=== PATIENT | male | born 1965 | race Caucasian/White ===

== ENCOUNTER 2021-01-12 08:04 | Emergency (ER) | payer BC, OTHER ==
[~2021-01-12] VITALS: Ht 180.3 cm; Wt 114.5 kg
[2021-01-12] MEDS ORDERED: normal saline 1000ml 1,000 ML IV ONE (08:50)
[2021-01-12 10:29] VITALS: BP 146/92
[2021-01-12 10:46] LABS: BASOPHILS % (AUTO) 0.2 % (0-1); EOSINOPHILS % (AUTO) 0 % (0-6); HEMATOCRIT 45.8 % (42.0-52.0); HEMOGLOBIN 15.8 g/dl (14.0-17.9); LYMPHOCYTES # (AUTO) 1.2 X10'3 (1.1-4.8); LYMPHOCYTES % (AUTO) 16.6 % (21-51); MEAN CORPUSCULAR HEMOGLOBIN 31.5 PG (27.0-31.0); MEAN CORPUSCULAR HGB CONC 34.5 g/dL (33.0-36.5); MEAN CORPUSCULAR VOLUME 91.2 FL (78-98); MEAN PLATELET VOLUME 7.7 FL (7.4-10.4); MONOCYTES # (AUTO) 0.9 X10'3 (0-0.9); MONOCYTES % (AUTO) 12.5 % (2-12); NEUTROPHILS # (AUTO) 4.9 X10'3 (1.8-7.7); NEUTROPHILS % (AUTO) 70.7 % (42-75); PLATELET COUNT 189 X10'3 (140-440); RED BLOOD COUNT 5.02 X10'6 (4.70-6.10); RED CELL DISTRIBUTION WIDTH 14.2 % (11.5-14.5)
[2021-01-12 11:17] LABS: ALANINE AMINOTRANSFERASE 90 U/L (12-78); ALBUMIN 3.3 G/DL (3.4-5.0); ALBUMIN/GLOBULIN RATIO 0.7 (1.1-1.5); ALKALINE PHOSPHATASE 67 IU/L (46-116); ANION GAP 10 (8-16); ASPARTATE AMINO TRANSFERASE 67 U/L (10-37); BILIRUBIN,TOTAL 0.5 MG/DL (0.1-1.0); BLOOD UREA NITROGEN 17 MG/DL (7-18); BUN/CREATININE RATIO 15.9 (5.4-32.0); CALCIUM 8.4 MG/DL (8.5-10.1); CHLORIDE 102 MMOL/L (99-107); CREATININE 1.07 MG/DL (0.60-1.10); GLUCOSE 132 MG/DL (70-104); POTASSIUM 4.6 MMOL/L (3.5-5.1); SODIUM 137 MMOL/L (135-145); TOTAL CARBON DIOXIDE 24.6 MMOL/L (24-32); TOTAL PROTEIN 7.9 G/DL (6.4-8.2); eGFR 72 ML/MIN
[2021-01-12 11:34] LABS: C-REACTIVE PROTEIN 2.08 MG/DL (0.0-0.5); FERRITIN 557 NG/ML (26-388); LACTATE DEHYDROGENASE 237 U/L (85-227)
[2021-01-20] MEDS ORDERED: LISI1TAB49 PO (11:28)
[2021-01-28] MEDS ORDERED: LISI5TAB22 PO (13:46)
== END 2021-01-12 11:57 | disposition home or self-care (01) ==
LOC: ER 08:05
DX: U07.1 COVID-19 (principal)
CPT/HCPCS: 36415; 71045; 80053; 82728; 83615; 83880; 84145; 84484; 85025; 85384; 86140; 87502; 87503; 87635; 93005; 96360; 99285; C9803; J7030

== ENCOUNTER 2021-01-20 10:35 | Inpatient (IN) | payer BC, OTHER ==
[~2021-01-20] VITALS: Ht 180.3 cm; Wt 114.5 kg
[2021-01-20] MEDS ORDERED: normal saline 1000ML IV soln IV ONE (10:50)
[2021-01-20] MEDS ORDERED: ketorolac trometh. 30mg/ml inj. IV ONE (11:00)
[2021-01-20] MEDS ORDERED: dexamethasone sod phosphate 10mg/ml inj IV STA (11:00)
[2021-01-20 11:21] LABS: BASOPHILS % (AUTO) 0.4 % (0-1); EOSINOPHILS % (AUTO) 0.2 % (0-6); HEMATOCRIT 42.6 % (42.0-52.0); HEMOGLOBIN 14.3 g/dl (14.0-17.9); LYMPHOCYTES # (AUTO) 0.9 X10'3 (1.1-4.8); LYMPHOCYTES % (AUTO) 7.9 % (21-51); MEAN CORPUSCULAR HEMOGLOBIN 30.9 PG (27.0-31.0); MEAN CORPUSCULAR HGB CONC 33.4 g/dL (33.0-36.5); MEAN CORPUSCULAR VOLUME 92.4 FL (78-98); MEAN PLATELET VOLUME 7.1 FL (7.4-10.4); MONOCYTES # (AUTO) 0.7 X10'3 (0-0.9); MONOCYTES % (AUTO) 6.3 % (2-12); NEUTROPHILS # (AUTO) 9.5 X10'3 (1.8-7.7); NEUTROPHILS % (AUTO) 85.2 % (42-75); PLATELET COUNT 516 X10'3 (140-440); RED BLOOD COUNT 4.62 X10'6 (4.70-6.10); RED CELL DISTRIBUTION WIDTH 14.1 % (11.5-14.5); WHITE BLOOD COUNT 11.2 X10'3 (4.5-11.0)
[2021-01-20] MEDS ORDERED: LISI1TAB32 PO (11:28)
--- NOTE | 2021-01-20 11:28 | NUR ---
pt reports he does not always take his rx lisinopril and does not take his atorvastatin
[2021-01-20 11:33] LABS: D-DIMER 1.21 MG/L FEU (0-0.50)
[2021-01-20 11:46] LABS: ALANINE AMINOTRANSFERASE 65 U/L (12-78); ALBUMIN 2.1 G/DL (3.4-5.0); ALBUMIN/GLOBULIN RATIO 0.4 (1.1-1.5); ALKALINE PHOSPHATASE 67 IU/L (46-116); ANION GAP 8 (8-16); ASPARTATE AMINO TRANSFERASE 50 U/L (10-37); BLOOD UREA NITROGEN 13 MG/DL (7-18); BUN/CREATININE RATIO 11.7 (5.4-32.0); CALCIUM 8.4 MG/DL (8.5-10.1); CHLORIDE 103 MMOL/L (99-107); CREATININE 1.11 MG/DL (0.60-1.10); GLUCOSE 130 MG/DL (70-104); POTASSIUM 4.3 MMOL/L (3.5-5.1); SODIUM 137 MMOL/L (135-145); TOTAL CARBON DIOXIDE 25.7 MMOL/L (24-32); TOTAL PROTEIN 7.5 G/DL (6.4-8.2); eGFR 69 ML/MIN
[2021-01-20] MEDS ORDERED: CefTRIAXone 2gm/D5W 50ml BAG 50 ML IV ONE (11:50)
[2021-01-20 11:53] LABS: C-REACTIVE PROTEIN 17.75 MG/DL (0.0-0.5); MAGNESIUM 2.5 MG/DL (1.5-2.4)
[2021-01-20] MEDS ORDERED: REMDESIVIR INJ 200 MG in normal saline 100ml IV soln 60 ML IV ONE (12:20)
[2021-01-20 12:31] LABS: TOTAL CELLS COUNTED 100
[2021-01-20] MEDS ORDERED: iohexol 350MG/ML 100ml bottle IV ONE (12:31)
[2021-01-20 12:32] LABS: BANDS% (MANUAL) 7 % (0-10); LYMPHOCYTES % (MANUAL) 5 % (21-51); METAMYLEOCYTES% (MANUAL) 1 % (0-0); MONOCYTES % (MANUAL) 4 % (2-12); MYELOCYTES % (MANUAL) 2 % (0-0)
[2021-01-20 12:33] LABS: PLATELET ESTIMATE INCREASED
[2021-01-20 12:34] LABS: ANISOCYTOSIS 1+; POLYCHROMASIA 1+; SCHISTOCYTES FEW
[2021-01-20] MEDS ORDERED: enoxaparin 100mg/ml syringe SUBCUT ONE (12:40)
[2021-01-20] MEDS ORDERED: enoxaparin 80mg/0.8ml syringe SUBCUT ONE (12:45)
[2021-01-20] MEDS ORDERED: enoxaparin 30mg/0.3ml syringe SUBCUT ONE (12:45)
[2021-01-20] MEDS ORDERED: NO HOME MEDS (13:04)
[2021-01-20] MEDS ORDERED: potassium Cl 40MEQ/1/2NS 520ml 520 ML IV PRN ×2 (13:30)
[2021-01-20] MEDS ORDERED: ondansetron/PF 4mg/2ml inj IV PRN (13:30)
[2021-01-20] MEDS ORDERED: magnesium hydroxide 30ml (MOM) UD suspension PO PRN (13:30)
[2021-01-20] MEDS ORDERED: acetaminophen 325mg tablet PO PRN ×2 (13:30)
[2021-01-20] MEDS ORDERED: potassium Cl 20 mEq SR tablet PO PRN ×2 (13:30)
[2021-01-20] MEDS ORDERED: morphine 2 MG/ML inj. syringe IV PRN ×2 (13:30)
[2021-01-20] MEDS ORDERED: magnesium Cl slow-release 64mg tablet PO PRN (13:30)
[2021-01-20] MEDS ORDERED: HYDROcodone/acetaminophen 10/325mg tab PO PRN (13:30)
[2021-01-20] MEDS ORDERED: acetaminophen 650mg rectal suppository RC PRN (13:30)
[2021-01-20] MEDS ORDERED: magnesium 2GM in 50ml NS 50 ML IV PRN (13:30)
[2021-01-20] MEDS: normal saline 1000ml 1,000 ML IV SCH (13:30)
[2021-01-20] MEDS ORDERED: magnesium 4gm in 100ml NS 100 ML IV PRN (13:30)
[2021-01-20] MEDS ORDERED: diphenhydrAMINE 25mg capsule PO PRN (13:30)
[2021-01-20] MEDS ORDERED: mag hydrox/Alum hydrox/simeth 30ml oral suspension PO PRN (13:30)
[2021-01-20] MEDS ORDERED: bisacodyl 10mg suppository rectal RC PRN (13:30)
[2021-01-20] MEDS ORDERED: HYDROcodone/acetaminophen 5mg/325mg tablet PO PRN (13:30)
[2021-01-20 14:01] LABS: HEMOGLOBIN A1C 6.7 % (4.5-6.2)
--- NOTE | 2021-01-20 18:33 | NUR ---
Rec'd report from ADRIANO Jimenez
[2021-01-20] MEDS: K and/or MAG REPLACEMENT MC SCH (20:00)
[2021-01-20] MEDS: dexamethasone 4mg/ml inj IM SCH (20:09)
[2021-01-20] MEDS: docusate sod 100mg capsule PO SCH (20:09)
[2021-01-20] MEDS: heparin, porcine 5000 units/ml vial SQ SCH (20:10)
--- NOTE | 2021-01-20 21:36 | NUR ---
Patient resting comfortably on gurluray, I turned high flow up to 15L and pt now sating 88-90%
[2021-01-20 23:00] VITALS: BP 129/84
[2021-01-21 02:00] VITALS: BP 125/86
--- NOTE | 2021-01-21 06:15 | NUR ---
Patient in room [facility]TH[facility] 4008. I have received report from Woody OH and had the opportunity to ask questions and assume patient care.
[2021-01-21 06:16] VITALS: BP 119/79
[2021-01-21] MEDS: REMDESIVIR 100 MG in NS 100ml IVPB IV SCH (06:53)
[2021-01-21] MEDS: heparin, porcine 5000 units/ml vial SQ SCH (06:54)
--- NOTE | 2021-01-21 07:25 | NUR ---
MESSAGE: [phone]. Decadron is ordered IM, was it supposed to be this way or can i get it changed to IV? j luis [phone]
[2021-01-21] MEDS: dexamethasone 4mg/ml inj IM SCH (07:45)
--- NOTE | 2021-01-21 07:56 | NUR ---
Patient agreeable to lying prone
[2021-01-21] MEDS: docusate sod 100mg capsule PO SCH ×2 (08:00→20:00)
[2021-01-21] MEDS: K and/or MAG REPLACEMENT MC SCH ×2 (08:00→20:00)
[2021-01-21 08:05] LABS: BASOPHILS # (AUTO) 0.1 X10'3 (0-0.2); BASOPHILS % (AUTO) 0.5 % (0-1); EOSINOPHILS % (AUTO) 0 % (0-6); HEMATOCRIT 40.2 % (42.0-52.0); HEMOGLOBIN 13.7 g/dl (14.0-17.9); LYMPHOCYTES % (AUTO) 8.5 % (21-51); MEAN CORPUSCULAR HEMOGLOBIN 31.3 PG (27.0-31.0); MEAN CORPUSCULAR VOLUME 92.3 FL (78-98); MEAN PLATELET VOLUME 7.4 FL (7.4-10.4); MONOCYTES # (AUTO) 0.6 X10'3 (0-0.9); MONOCYTES % (AUTO) 5.2 % (2-12); NEUTROPHILS # (AUTO) 9.9 X10'3 (1.8-7.7); NEUTROPHILS % (AUTO) 85.8 % (42-75); PLATELET COUNT 517 X10'3 (140-440); RED BLOOD COUNT 4.36 X10'6 (4.70-6.10); RED CELL DISTRIBUTION WIDTH 14.1 % (11.5-14.5); WHITE BLOOD COUNT 11.6 X10'3 (4.5-11.0)
[2021-01-21 08:15] LABS: ALANINE AMINOTRANSFERASE 64 U/L (12-78); ALBUMIN 1.8 G/DL (3.4-5.0); ALBUMIN/GLOBULIN RATIO 0.3 (1.1-1.5); ALKALINE PHOSPHATASE 69 IU/L (46-116); ANION GAP 10 (8-16); ASPARTATE AMINO TRANSFERASE 47 U/L (10-37); BILIRUBIN,TOTAL 0.4 MG/DL (0.1-1.0); BLOOD UREA NITROGEN 17 MG/DL (7-18); C-REACTIVE PROTEIN 16.85 MG/DL (0.0-0.5); CALCIUM 8.5 MG/DL (8.5-10.1); CHLORIDE 109 MMOL/L (99-107); CHOL/HDL RATIO 7.6 (0.00-4.99); CHOLESTEROL 151 MG/DL (0-200); CREATININE 0.85 MG/DL (0.60-1.10); GLUCOSE 158 MG/DL (70-104); HDL CHOLESTEROL 20 MG/DL (35-60); LACTATE DEHYDROGENASE 476 U/L (85-227); LDL CHOLESTEROL 98 MG/DL (50-100); MAGNESIUM 2.7 MG/DL (1.5-2.4); PHOSPHORUS 3.1 MG/DL (2.3-4.5); POTASSIUM 4.6 MMOL/L (3.5-5.1); SODIUM 143 MMOL/L (135-145); TOTAL CARBON DIOXIDE 24.1 MMOL/L (24-32); TOTAL PROTEIN 7.1 G/DL (6.4-8.2); TRIGLYCERIDES 127 MG/DL (20-135); eGFR > 90 ML/MIN
[2021-01-21 09:38] LABS: D-DIMER 1.19 MG/L FEU (0-0.50)
[2021-01-21] MEDS ORDERED: dextrose 50%-water 50ml dispensing syringe IV PRN ×2 (09:40)
[2021-01-21] MEDS ORDERED: MESSAGE TO PHARMACY PO ONE (09:40)
[2021-01-21] MEDS ORDERED: glucagon, human recombinant 1mg kit SUBCUT PRN (09:40)
[2021-01-21] MEDS ORDERED: dextrose ORAL solution 15 GM/59 ML bottle PO PRN ×2 (09:40)
[2021-01-21 10:40] VITALS: BP 124/69
--- NOTE | 2021-01-21 13:56 | NUR ---
DM Consult "A1C 6.7": Pt admit DX COVID-19 PNA, acute respiratory failure, HTN, and new onset DM likely to require PO Glu coverage on discharge per MD note. Pt PO 50% first carb controlled meal on 15L high flow salter w/ NRB per EMR. Pending BM though just admit receiving routine colace. Pt would benefit from written/verbal DM ed once more appropriate following MD discussion w/ pt regarding new DM DX this admit. Will continue to monitor for PO trends and nutrition intervention needs this admit. Rec: 1. continue carb controlled diet; encourage PO 2. monitor for ONS needs pending further PO hx 3. routine bowel care 4. scaled wt this admit; subsequent weekly wts 5. DM ed once more appropriate and pt made aware of new DM DX by MD prior to discharge Addendum: 01/21/21 at [address] Amended: Links added.
[2021-01-21 14:17] VITALS: BP 120/72
[2021-01-21] MEDS: insulin Lispro (HumaLOG) vial - multi-dose SQ SCH ×2 (14:24→18:53)
--- NOTE | 2021-01-21 15:54 | NUR ---
Patient sitting up in chair
[2021-01-21 18:00] VITALS: BP 133/70
--- NOTE | 2021-01-21 18:19 | NUR ---
Problems reprioritized. Patient report given, questions answered & plan of care reviewed with Woody OH.
[2021-01-21] MEDS: dexamethasone 6 MG in NS 50ml IV soln IV SCH (20:00)
[2021-01-21] MEDS ORDERED: dexamethasone 4mg/ml inj IV SCH ×2 (20:00)
[2021-01-21] MEDS: enoxaparin 40mg/0.4ml syringe SUBCUT SCH (20:00)
[2021-01-21] MEDS: insulin glargine (Lantus) pen - multi-dose SQ SCH (21:16)
[2021-01-21 22:00] VITALS: BP 127/74
[2021-01-22 02:00] VITALS: BP 136/87
--- NOTE | 2021-01-22 06:18 | NUR ---
Patient in room [facility]TH[facility] 4008. I have received report from Woody OH and had the opportunity to ask questions and assume patient care.
[2021-01-22 06:19] VITALS: BP 120/76
[2021-01-22] MEDS: docusate sod 100mg capsule PO SCH ×2 (07:08→20:01)
[2021-01-22] MEDS: dexamethasone 6 MG in NS 50ml IV soln IV SCH ×2 (07:08→20:01)
[2021-01-22] MEDS: enoxaparin 40mg/0.4ml syringe SUBCUT SCH ×2 (07:08→20:01)
[2021-01-22] MEDS: K and/or MAG REPLACEMENT MC SCH ×2 (08:00→20:00)
[2021-01-22] MEDS: REMDESIVIR 100 MG in NS 100ml IVPB IV SCH (08:01)
[2021-01-22 08:23] LABS: BASOPHILS # (AUTO) 0.1 X10'3 (0-0.2); EOSINOPHILS % (AUTO) 0 % (0-6); HEMATOCRIT 41.9 % (42.0-52.0); HEMOGLOBIN 13.9 g/dl (14.0-17.9); LYMPHOCYTES # (AUTO) 1.2 X10'3 (1.1-4.8); MEAN CORPUSCULAR HGB CONC 33.3 g/dL (33.0-36.5); MONOCYTES # (AUTO) 0.6 X10'3 (0-0.9)
[2021-01-22 08:24] LABS: BASOPHILS % (AUTO) 0.4 % (0-1); LYMPHOCYTES % (AUTO) 6.8 % (21-51); MEAN CORPUSCULAR VOLUME 93.2 FL (78-98); MEAN PLATELET VOLUME 7.6 FL (7.4-10.4); MONOCYTES % (AUTO) 3.7 % (2-12); NEUTROPHILS # (AUTO) 15.6 X10'3 (1.8-7.7); NEUTROPHILS % (AUTO) 89.1 % (42-75); PLATELET COUNT 674 X10'3 (140-440); RED BLOOD COUNT 4.49 X10'6 (4.70-6.10); RED CELL DISTRIBUTION WIDTH 14.3 % (11.5-14.5); WHITE BLOOD COUNT 17.5 X10'3 (4.5-11.0)
[2021-01-22] MEDS: insulin Lispro (HumaLOG) vial - multi-dose SQ SCH ×3 (08:41→18:53)
[2021-01-22 08:46] LABS: ALANINE AMINOTRANSFERASE 94 U/L (12-78); ALBUMIN 1.9 G/DL (3.4-5.0); ALBUMIN/GLOBULIN RATIO 0.4 (1.1-1.5); ALKALINE PHOSPHATASE 61 IU/L (46-116); ANION GAP 10 (8-16); ASPARTATE AMINO TRANSFERASE 53 U/L (10-37); BILIRUBIN,TOTAL 0.5 MG/DL (0.1-1.0); BLOOD UREA NITROGEN 23 MG/DL (7-18); BUN/CREATININE RATIO 24.5 (5.4-32.0); C-REACTIVE PROTEIN 7.22 MG/DL (0.0-0.5); CALCIUM 8.6 MG/DL (8.5-10.1); CHLORIDE 109 MMOL/L (99-107); CREATININE 0.94 MG/DL (0.60-1.10); D-DIMER 0.91 MG/L FEU (0-0.50); GLUCOSE 129 MG/DL (70-104); LACTATE DEHYDROGENASE 399 U/L (85-227); MAGNESIUM 2.5 MG/DL (1.5-2.4); POTASSIUM 4.4 MMOL/L (3.5-5.1); SODIUM 143 MMOL/L (135-145); eGFR 84 ML/MIN
[2021-01-22 10:30] VITALS: BP 141/75
[2021-01-22] MEDS: normal saline 1000ml 1,000 ML IV SCH (13:31)
[2021-01-22 14:48] VITALS: BP 123/77
--- NOTE | 2021-01-22 15:56 | NUR ---
Attempted to titrate patients nonrebreather down to 10 liters with 15 liters on the high flow salter as his sp02 was 97%, re-checked patients sp02 and it was 86%. Placed back on 15 liters on the nonrebreather
[2021-01-22 18:00] VITALS: BP 128/79
--- NOTE | 2021-01-22 18:24 | NUR ---
Problems reprioritized. Patient report given, questions answered & plan of care reviewed with Yvenet.
[2021-01-22] MEDS: insulin glargine (Lantus) pen - multi-dose SQ SCH (20:47)
[2021-01-22 22:00] VITALS: BP 138/79
[2021-01-23 02:03] VITALS: BP 125/77
[2021-01-23 06:00] VITALS: BP 117/68
--- NOTE | 2021-01-23 06:37 | NUR ---
Patient in room [facility]TH[facility] 4008. I have received report from ADRIANO Whitman and had the opportunity to ask questions and assume patient care.
[2021-01-23] MEDS: REMDESIVIR 100 MG in NS 100ml IVPB IV SCH (07:42)
[2021-01-23] MEDS: dexamethasone 6 MG in NS 50ml IV soln IV SCH ×2 (07:42→20:40)
[2021-01-23 07:43] LABS: BASOPHILS # (AUTO) 0.2 X10'3 (0-0.2); BASOPHILS % (AUTO) 1.1 % (0-1); EOSINOPHILS % (AUTO) 0 % (0-6); HEMATOCRIT 41.3 % (42.0-52.0); HEMOGLOBIN 13.9 g/dl (14.0-17.9); LYMPHOCYTES # (AUTO) 1.1 X10'3 (1.1-4.8); LYMPHOCYTES % (AUTO) 7.8 % (21-51); MEAN CORPUSCULAR HEMOGLOBIN 31.2 PG (27.0-31.0); MEAN CORPUSCULAR HGB CONC 33.7 g/dL (33.0-36.5); MEAN CORPUSCULAR VOLUME 92.6 FL (78-98); MEAN PLATELET VOLUME 7.3 FL (7.4-10.4); MONOCYTES # (AUTO) 0.8 X10'3 (0-0.9); MONOCYTES % (AUTO) 5.6 % (2-12); NEUTROPHILS # (AUTO) 11.7 X10'3 (1.8-7.7); NEUTROPHILS % (AUTO) 85.5 % (42-75); PLATELET COUNT 561 X10'3 (140-440); RED BLOOD COUNT 4.46 X10'6 (4.70-6.10); RED CELL DISTRIBUTION WIDTH 14.5 % (11.5-14.5); WHITE BLOOD COUNT 13.7 X10'3 (4.5-11.0)
[2021-01-23] MEDS: enoxaparin 40mg/0.4ml syringe SUBCUT SCH ×2 (07:43→20:40)
[2021-01-23] MEDS: docusate sod 100mg capsule PO SCH ×3 (07:44→20:40)
[2021-01-23 07:59] LABS: D-DIMER 1.04 MG/L FEU (0-0.50)
[2021-01-23] MEDS: K and/or MAG REPLACEMENT MC SCH ×2 (08:00→20:00)
[2021-01-23 08:08] LABS: LARGE PLATELETS FEW; PLATELET ESTIMATE INCREASED
[2021-01-23 08:27] LABS: ALANINE AMINOTRANSFERASE 94 U/L (12-78); ALBUMIN 1.9 G/DL (3.4-5.0); ALBUMIN/GLOBULIN RATIO 0.4 (1.1-1.5); ALKALINE PHOSPHATASE 60 IU/L (46-116); ANION GAP 9 (8-16); ASPARTATE AMINO TRANSFERASE 57 U/L (10-37); BILIRUBIN,TOTAL 0.4 MG/DL (0.1-1.0); BLOOD UREA NITROGEN 21 MG/DL (7-18); BUN/CREATININE RATIO 22.8 (5.4-32.0); C-REACTIVE PROTEIN 3.26 MG/DL (0.0-0.5); CALCIUM 8.4 MG/DL (8.5-10.1); CHLORIDE 109 MMOL/L (99-107); CREATININE 0.92 MG/DL (0.60-1.10); GLUCOSE 127 MG/DL (70-104); LACTATE DEHYDROGENASE 319 U/L (85-227); MAGNESIUM 2.4 MG/DL (1.5-2.4); PHOSPHORUS 4.5 MG/DL (2.3-4.5); POTASSIUM 4.6 MMOL/L (3.5-5.1); SODIUM 141 MMOL/L (135-145); TOTAL CARBON DIOXIDE 23.1 MMOL/L (24-32); TOTAL PROTEIN 6.5 G/DL (6.4-8.2); eGFR 86 ML/MIN
[2021-01-23] MEDS: insulin Lispro (HumaLOG) vial - multi-dose SQ SCH ×3 (08:27→19:00)
[2021-01-23 10:00] VITALS: BP 123/69
[2021-01-23 15:00] VITALS: BP 133/88
[2021-01-23 18:00] VITALS: BP 121/79
--- NOTE | 2021-01-23 18:37 | NUR ---
Problems reprioritized. Patient report given, questions answered & plan of care reviewed with ADRIANO Fraser.
[2021-01-23 21:39] VITALS: BP 125/82
[2021-01-23] MEDS: insulin glargine (Lantus) pen - multi-dose SQ SCH (21:48)
[2021-01-24 02:00] VITALS: BP 122/82
[2021-01-24] MEDS: normal saline 1000ml 1,000 ML IV SCH (04:06)
--- NOTE | 2021-01-24 05:43 | NUR ---
PATIENT IN ROOM RESTING WITH EYES CLOSED AT THIS TIME. NO SIGNS OF DISCOMFORT NOTED. NO SIGNS OF DISTRESS NOTED. IVF INFUSING PER ORDER. VSS THROUGHOUT SHIFT. CALL LIGHT PLACED WITHIN REACH. PATIENT INSTRUCTED TO CALL FOR ASSISTANCE. VITAL SIGNS AND ASSESSMENT DOCUMENTED IN INTERVENTIONS. WILL CONTINUE TO MONITOR.
[2021-01-24 06:00] VITALS: BP 112/73
[2021-01-24] MEDS: docusate sod 100mg capsule PO SCH ×3 (07:49→20:29)
[2021-01-24] MEDS: dexamethasone 6 MG in NS 50ml IV soln IV SCH ×2 (07:49→20:28)
[2021-01-24] MEDS: enoxaparin 40mg/0.4ml syringe SUBCUT SCH ×2 (07:50→20:29)
[2021-01-24] MEDS: K and/or MAG REPLACEMENT MC SCH ×2 (08:00→20:00)
[2021-01-24] MEDS: REMDESIVIR 100 MG in NS 100ml IVPB IV SCH (08:23)
[2021-01-24 09:03] LABS: BASOPHILS # (AUTO) 0.1 X10'3 (0-0.2); BASOPHILS % (AUTO) 0.5 % (0-1); HEMOGLOBIN 15.2 g/dl (14.0-17.9); LYMPHOCYTES # (AUTO) 1.3 X10'3 (1.1-4.8); MONOCYTES # (AUTO) 0.6 X10'3 (0-0.9); WHITE BLOOD COUNT 13.5 X10'3 (4.5-11.0)
[2021-01-24 09:05] LABS: EOSINOPHILS % (AUTO) 0.1 % (0-6); HEMATOCRIT 44.9 % (42.0-52.0); LYMPHOCYTES % (AUTO) 9.4 % (21-51); MEAN CORPUSCULAR HEMOGLOBIN 31.4 PG (27.0-31.0); MEAN CORPUSCULAR HGB CONC 33.8 g/dL (33.0-36.5); MEAN CORPUSCULAR VOLUME 92.6 FL (78-98); MEAN PLATELET VOLUME 7.3 FL (7.4-10.4); MONOCYTES % (AUTO) 4.1 % (2-12); NEUTROPHILS # (AUTO) 11.6 X10'3 (1.8-7.7); NEUTROPHILS % (AUTO) 85.9 % (42-75); PLATELET COUNT 660 X10'3 (140-440); RED BLOOD COUNT 4.85 X10'6 (4.70-6.10); RED CELL DISTRIBUTION WIDTH 14.5 % (11.5-14.5)
[2021-01-24] MEDS: insulin Lispro (HumaLOG) vial - multi-dose SQ SCH (09:06)
[2021-01-24 09:38] LABS: ALANINE AMINOTRANSFERASE 107 U/L (12-78); ALBUMIN 2.2 G/DL (3.4-5.0); ALBUMIN/GLOBULIN RATIO 0.4 (1.1-1.5); ALKALINE PHOSPHATASE 63 IU/L (46-116); ANION GAP 9 (8-16); ASPARTATE AMINO TRANSFERASE 47 U/L (10-37); BILIRUBIN,TOTAL 0.5 MG/DL (0.1-1.0); BLOOD UREA NITROGEN 19 MG/DL (7-18); BUN/CREATININE RATIO 22.9 (5.4-32.0); C-REACTIVE PROTEIN 1.81 MG/DL (0.0-0.5); CALCIUM 8.3 MG/DL (8.5-10.1); CHLORIDE 105 MMOL/L (99-107); CREATININE 0.83 MG/DL (0.60-1.10); GLUCOSE 113 MG/DL (70-104); LACTATE DEHYDROGENASE 339 U/L (85-227); MAGNESIUM 2.5 MG/DL (1.5-2.4); PHOSPHORUS 4.2 MG/DL (2.3-4.5); POTASSIUM 4.6 MMOL/L (3.5-5.1); SODIUM 142 MMOL/L (135-145); TOTAL CARBON DIOXIDE 28.1 MMOL/L (24-32); TOTAL PROTEIN 7.2 G/DL (6.4-8.2); eGFR > 90 ML/MIN
[2021-01-24 10:00] VITALS: BP 116/67
[2021-01-24 10:41] LABS: BURR CELLS 1+; PLATELET ESTIMATE INCREASED; TOTAL CELLS COUNTED 100
[2021-01-24 11:21] LABS: D-DIMER 0.76 MG/L FEU (0-0.50)
[2021-01-24 14:00] VITALS: BP 118/83
--- NOTE | 2021-01-24 14:16 | NUR ---
Reassessment: Pt PO steadily improving past two days up to ~69% past 24 hours partially meeting needs. Glu 113-132mg/dl on dexamethasone and glycemic protocol. RD recommends Ensure Enlive BIDBD to optimize protein/kcal intake; notified. RD d/w RN new DM DX this admit; RN reports discussed w/ patient who is not aware of DM. Will need DM DX this admit prior to RD ed. LBM 01/22. Will continue to monitor. Rec: 1. continue carb controlled diet; encourage PO 2. Ensure Enlive BIDBD; pending MD verification in EMR 3. routine bowel care 4. scaled wt this admit; subsequent weekly wts 5. DM ed once more appropriate and pt made aware of new DM DX by MD prior to discharge Addendum: 01/24/21 at [address] Amended: Links added.
[2021-01-24] MEDS ORDERED: lactose-reduced food (Ensure Enlive) - 237ml bottle PO SCH (17:30)
[2021-01-24 18:00] VITALS: BP 119/79
--- NOTE | 2021-01-24 18:45 | NUR ---
Problems reprioritized. Patient report given, questions answered & plan of care reviewed with J Carlos OH.
[2021-01-24] MEDS: insulin glargine (Lantus) pen - multi-dose SQ SCH (21:25)
[2021-01-24 22:00] VITALS: BP 93/54
[2021-01-25 02:00] VITALS: BP 109/66
[2021-01-25 06:28] VITALS: BP 122/71
--- NOTE | 2021-01-25 06:28 | NUR ---
Patient in room [facility]TH[facility] 4008. I have received report from J Carlos Borden and had the opportunity to ask questions and assume patient care.
--- NOTE | 2021-01-25 06:43 | NUR ---
Patient in room [facility]TH[facility] 4008. I have received report from JESUS OH and had the opportunity to ask questions and assume patient care.
[2021-01-25] MEDS: docusate sod 100mg capsule PO SCH ×2 (07:39→20:33)
[2021-01-25] MEDS: dexamethasone 6 MG in NS 50ml IV soln IV SCH ×2 (07:40→20:33)
[2021-01-25] MEDS: enoxaparin 40mg/0.4ml syringe SUBCUT SCH ×2 (07:41→20:33)
[2021-01-25] MEDS: K and/or MAG REPLACEMENT MC SCH ×2 (08:00→20:00)
[2021-01-25 08:20] LABS: EOSINOPHILS % (AUTO) 0 % (0-6); WHITE BLOOD COUNT 15.3 X10'3 (4.5-11.0)
[2021-01-25 08:22] LABS: BASOPHILS % (AUTO) 0.2 % (0-1); HEMATOCRIT 44.2 % (42.0-52.0); LYMPHOCYTES # (AUTO) 1.3 X10'3 (1.1-4.8); LYMPHOCYTES % (AUTO) 8.2 % (21-51); MEAN CORPUSCULAR HEMOGLOBIN 31.2 PG (27.0-31.0); MEAN CORPUSCULAR HGB CONC 33.9 g/dL (33.0-36.5); MEAN CORPUSCULAR VOLUME 92.2 FL (78-98); MEAN PLATELET VOLUME 7.4 FL (7.4-10.4); MONOCYTES % (AUTO) 6.3 % (2-12); NEUTROPHILS # (AUTO) 13.1 X10'3 (1.8-7.7); NEUTROPHILS % (AUTO) 85.3 % (42-75); PLATELET COUNT 624 X10'3 (140-440); RED CELL DISTRIBUTION WIDTH 14.3 % (11.5-14.5)
[2021-01-25 08:40] LABS: ASPARTATE AMINO TRANSFERASE 36 U/L (10-37); BILIRUBIN,TOTAL 0.4 MG/DL (0.1-1.0); BLOOD UREA NITROGEN 22 MG/DL (7-18); BUN/CREATININE RATIO 27.8 (5.4-32.0); C-REACTIVE PROTEIN 0.79 MG/DL (0.0-0.5); CHLORIDE 103 MMOL/L (99-107); CREATININE 0.79 MG/DL (0.60-1.10); GLUCOSE 127 MG/DL (70-104); PHOSPHORUS 4.1 MG/DL (2.3-4.5); POTASSIUM 4.9 MMOL/L (3.5-5.1); eGFR > 90 ML/MIN
[2021-01-25 08:41] LABS: ALANINE AMINOTRANSFERASE 89 U/L (12-78); ALBUMIN 2.1 G/DL (3.4-5.0); ALBUMIN/GLOBULIN RATIO 0.4 (1.1-1.5); ALKALINE PHOSPHATASE 49 IU/L (46-116); ANION GAP 8 (8-16); CALCIUM 8.3 MG/DL (8.5-10.1); LACTATE DEHYDROGENASE 282 U/L (85-227); MAGNESIUM 2.5 MG/DL (1.5-2.4); SODIUM 136 MMOL/L (135-145); TOTAL CARBON DIOXIDE 24.6 MMOL/L (24-32); TOTAL PROTEIN 6.8 G/DL (6.4-8.2)
[2021-01-25 09:01] LABS: BURR CELLS 1+; PLATELET ESTIMATE INCREASED; TOTAL CELLS COUNTED 100
[2021-01-25 09:10] LABS: D-DIMER 0.77 MG/L FEU (0-0.50)
[2021-01-25] MEDS: insulin Lispro (HumaLOG) vial - multi-dose SQ SCH ×3 (09:55→19:17)
[2021-01-25 10:00] VITALS: BP 103/64
[2021-01-25 14:00] VITALS: BP 97/53
[2021-01-25 18:00] VITALS: BP 111/70
[2021-01-25 22:00] VITALS: BP 105/66
[2021-01-25] MEDS: insulin glargine (Lantus) pen - multi-dose SQ SCH (23:00)
[2021-01-26 02:00] VITALS: BP 108/65
--- NOTE | 2021-01-26 06:00 | NUR ---
Problems reprioritized. Patient report given, questions answered & plan of care reviewed with MS. Leon.
[2021-01-26 08:29] LABS: BASOPHILS # (AUTO) 0.1 X10'3 (0-0.2); EOSINOPHILS % (AUTO) 0.1 % (0-6); MEAN PLATELET VOLUME 7.4 FL (7.4-10.4); MONOCYTES # (AUTO) 0.9 X10'3 (0-0.9)
[2021-01-26 08:34] LABS: BASOPHILS % (AUTO) 0.4 % (0-1); HEMATOCRIT 46.7 % (42.0-52.0); HEMOGLOBIN 15.4 g/dl (14.0-17.9); LYMPHOCYTES # (AUTO) 1.4 X10'3 (1.1-4.8); LYMPHOCYTES % (AUTO) 8.8 % (21-51); MEAN CORPUSCULAR HEMOGLOBIN 30.6 PG (27.0-31.0); MEAN CORPUSCULAR HGB CONC 32.9 g/dL (33.0-36.5); MEAN CORPUSCULAR VOLUME 93.1 FL (78-98); MONOCYTES % (AUTO) 5.7 % (2-12); NEUTROPHILS # (AUTO) 13.7 X10'3 (1.8-7.7); PLATELET COUNT 640 X10'3 (140-440); RED BLOOD COUNT 5.01 X10'6 (4.70-6.10); WHITE BLOOD COUNT 16.1 X10'3 (4.5-11.0)
[2021-01-26 08:41] LABS: D-DIMER 0.55 MG/L FEU (0-0.50)
[2021-01-26 08:44] LABS: ALANINE AMINOTRANSFERASE 82 U/L (12-78); ALBUMIN 2.2 G/DL (3.4-5.0); ALBUMIN/GLOBULIN RATIO 0.5 (1.1-1.5); ALKALINE PHOSPHATASE 59 IU/L (46-116); ANION GAP 7 (8-16); ASPARTATE AMINO TRANSFERASE 26 U/L (10-37); BILIRUBIN,TOTAL 0.6 MG/DL (0.1-1.0); BLOOD UREA NITROGEN 22 MG/DL (7-18); BUN/CREATININE RATIO 25.9 (5.4-32.0); C-REACTIVE PROTEIN 0.27 MG/DL (0.0-0.5); CALCIUM 8.4 MG/DL (8.5-10.1); CHLORIDE 107 MMOL/L (99-107); CREATININE 0.85 MG/DL (0.60-1.10); GLUCOSE 120 MG/DL (70-104); LACTATE DEHYDROGENASE 366 U/L (85-227); MAGNESIUM 2.5 MG/DL (1.5-2.4); PHOSPHORUS 4.5 MG/DL (2.3-4.5); POTASSIUM 4.7 MMOL/L (3.5-5.1); SODIUM 139 MMOL/L (135-145); TOTAL CARBON DIOXIDE 25.1 MMOL/L (24-32); TOTAL PROTEIN 6.7 G/DL (6.4-8.2); eGFR > 90 ML/MIN
[2021-01-26] MEDS: enoxaparin 40mg/0.4ml syringe SUBCUT SCH ×2 (10:25→20:08)
[2021-01-26] MEDS: docusate sod 100mg capsule PO SCH ×2 (10:25→20:00)
[2021-01-26] MEDS: dexamethasone 6 MG in NS 50ml IV soln IV SCH ×2 (10:26→20:08)
[2021-01-26 10:35] VITALS: BP 102/64
[2021-01-26] MEDS: insulin Lispro (HumaLOG) vial - multi-dose SQ SCH ×2 (10:35→19:05)
[2021-01-26 11:05] LABS: BURR CELLS 1+; PLATELET ESTIMATE INCREASED; TOTAL CELLS COUNTED 100; TOXIC GRANULATION 1+
[2021-01-26] MEDS: K and/or MAG REPLACEMENT MC SCH ×2 (12:00→20:00)
[2021-01-26] MEDS: normal saline 1000ml 1,000 ML IV SCH (13:30)
[2021-01-26 18:00] VITALS: BP 104/71
--- NOTE | 2021-01-26 18:30 | NUR ---
Patient in room [facility]TH[facility] 4008. I have received report from ADRIANO Hannah and had the opportunity to ask questions and assume patient care. Patient sitting up in bed eating dinner, has no complaints. I will continue to monitor.
[2021-01-26] MEDS: insulin glargine (Lantus) pen - multi-dose SQ SCH (20:47)
[2021-01-26 22:00] VITALS: BP 118/81
[2021-01-27 05:00] VITALS: BP 97/58
--- NOTE | 2021-01-27 06:08 | NUR ---
Problems reprioritized. Patient report given, questions answered & plan of care reviewed with ADRIANO Hannah.
[2021-01-27 07:14] LABS: EOSINOPHILS % (AUTO) 0 % (0-6); MEAN CORPUSCULAR VOLUME 93.1 FL (78-98)
[2021-01-27 07:17] LABS: BASOPHILS # (AUTO) 0.1 X10'3 (0-0.2); BASOPHILS % (AUTO) 0.9 % (0-1); HEMATOCRIT 45.6 % (42.0-52.0); HEMOGLOBIN 15.3 g/dl (14.0-17.9); LYMPHOCYTES # (AUTO) 1.3 X10'3 (1.1-4.8); LYMPHOCYTES % (AUTO) 8.8 % (21-51); MEAN CORPUSCULAR HEMOGLOBIN 31.2 PG (27.0-31.0); MEAN CORPUSCULAR HGB CONC 33.5 g/dL (33.0-36.5); MEAN PLATELET VOLUME 7.4 FL (7.4-10.4); MONOCYTES # (AUTO) 0.5 X10'3 (0-0.9); NEUTROPHILS # (AUTO) 13.1 X10'3 (1.8-7.7); NEUTROPHILS % (AUTO) 87.3 % (42-75); PLATELET COUNT 557 X10'3 (140-440); RED CELL DISTRIBUTION WIDTH 14.5 % (11.5-14.5); WHITE BLOOD COUNT 15.1 X10'3 (4.5-11.0)
[2021-01-27 07:53] LABS: ALANINE AMINOTRANSFERASE 76 U/L (12-78); ALBUMIN 2.2 G/DL (3.4-5.0); ALBUMIN/GLOBULIN RATIO 0.5 (1.1-1.5); ALKALINE PHOSPHATASE 52 IU/L (46-116); ANION GAP 9 (8-16); ASPARTATE AMINO TRANSFERASE 21 U/L (10-37); BILIRUBIN,TOTAL 0.6 MG/DL (0.1-1.0); BLOOD UREA NITROGEN 21 MG/DL (7-18); BUN/CREATININE RATIO 27.3 (5.4-32.0); C-REACTIVE PROTEIN 0.11 MG/DL (0.0-0.5); CALCIUM 8.3 MG/DL (8.5-10.1); CHLORIDE 107 MMOL/L (99-107); CREATININE 0.77 MG/DL (0.60-1.10); GLUCOSE 106 MG/DL (70-104); LACTATE DEHYDROGENASE 262 U/L (85-227); MAGNESIUM 2.4 MG/DL (1.5-2.4); PHOSPHORUS 3.9 MG/DL (2.3-4.5); POTASSIUM 4.5 MMOL/L (3.5-5.1); SODIUM 142 MMOL/L (135-145); TOTAL CARBON DIOXIDE 25.9 MMOL/L (24-32); TOTAL PROTEIN 6.4 G/DL (6.4-8.2); eGFR > 90 ML/MIN
[2021-01-27] MEDS: docusate sod 100mg capsule PO SCH ×2 (08:00→20:00)
[2021-01-27] MEDS: insulin Lispro (HumaLOG) vial - multi-dose SQ SCH ×2 (08:26→14:05)
[2021-01-27] MEDS: enoxaparin 40mg/0.4ml syringe SUBCUT SCH (08:27)
[2021-01-27] MEDS: dexamethasone 6 MG in NS 50ml IV soln IV SCH (08:28)
[2021-01-27 10:03] LABS: NUCLEATED RED BLOOD CELLS 1 /100WBC (0-0); PLATELET ESTIMATE INCREASED; TOTAL CELLS COUNTED 100
[2021-01-27] MEDS: K and/or MAG REPLACEMENT MC SCH ×2 (11:00→20:00)
[2021-01-27 11:02] VITALS: BP 92/62
[2021-01-27 15:00] VITALS: BP 107/75
[2021-01-27 20:00] VITALS: BP 124/64
[2021-01-27 22:00] VITALS: BP 120/78
[2021-01-27] MEDS: insulin glargine (Lantus) pen - multi-dose SQ SCH (22:43)
[2021-01-28 06:26] VITALS: BP 102/60
--- NOTE | 2021-01-28 06:26 | NUR ---
Patient in room [facility]TH[facility] 4008. I have received report from Jose OH and had the opportunity to ask questions and assume patient care.
--- NOTE | 2021-01-28 06:35 | NUR ---
Nutrition intake and blood glucose assessment not charted by noc shift
[2021-01-28] MEDS: docusate sod 100mg capsule PO SCH (07:33)
[2021-01-28] MEDS ORDERED: dexamethasone inj 6 MG in normal saline 50ml IV soln 50 ML IV SCH (08:00)
[2021-01-28] MEDS ORDERED: enoxaparin 40mg/0.4ml syringe SUBCUT SCH (08:00)
[2021-01-28] MEDS: K and/or MAG REPLACEMENT MC SCH (08:00)
[2021-01-28 08:01] LABS: BASOPHILS % (AUTO) 0.2 % (0-1); EOSINOPHILS % (AUTO) 0.1 % (0-6); HEMATOCRIT 45.6 % (42.0-52.0); HEMOGLOBIN 15.2 g/dl (14.0-17.9); LYMPHOCYTES # (AUTO) 2.2 X10'3 (1.1-4.8); LYMPHOCYTES % (AUTO) 17.5 % (21-51); MEAN CORPUSCULAR HEMOGLOBIN 31.1 PG (27.0-31.0); MEAN CORPUSCULAR HGB CONC 33.3 g/dL (33.0-36.5); MEAN CORPUSCULAR VOLUME 93.5 FL (78-98); MEAN PLATELET VOLUME 7.3 FL (7.4-10.4); MONOCYTES # (AUTO) 1.2 X10'3 (0-0.9); MONOCYTES % (AUTO) 9.9 % (2-12); NEUTROPHILS # (AUTO) 9.1 X10'3 (1.8-7.7); NEUTROPHILS % (AUTO) 72.3 % (42-75); PLATELET COUNT 490 X10'3 (140-440); RED BLOOD COUNT 4.87 X10'6 (4.70-6.10); RED CELL DISTRIBUTION WIDTH 14.6 % (11.5-14.5); WHITE BLOOD COUNT 12.5 X10'3 (4.5-11.0)
[2021-01-28 08:32] LABS: ALANINE AMINOTRANSFERASE 81 U/L (12-78); ALBUMIN 2.1 G/DL (3.4-5.0); ALBUMIN/GLOBULIN RATIO 0.6 (1.1-1.5); ALKALINE PHOSPHATASE 50 IU/L (46-116); ANION GAP 7 (8-16); ASPARTATE AMINO TRANSFERASE 27 U/L (10-37); BILIRUBIN,TOTAL 0.6 MG/DL (0.1-1.0); BLOOD UREA NITROGEN 21 MG/DL (7-18); CALCIUM 8.2 MG/DL (8.5-10.1); CHLORIDE 109 MMOL/L (99-107); CREATININE 0.84 MG/DL (0.60-1.10); GLUCOSE 78 MG/DL (70-104); LACTATE DEHYDROGENASE 179 U/L (85-227); MAGNESIUM 2.5 MG/DL (1.5-2.4); PHOSPHORUS 3.3 MG/DL (2.3-4.5); POTASSIUM 4.4 MMOL/L (3.5-5.1); SODIUM 142 MMOL/L (135-145); TOTAL CARBON DIOXIDE 26.4 MMOL/L (24-32); TOTAL PROTEIN 5.9 G/DL (6.4-8.2); eGFR > 90 ML/MIN
[2021-01-28] MEDS: insulin Lispro (HumaLOG) vial - multi-dose SQ SCH ×2 (08:49→13:12)
[2021-01-28 08:50] LABS: C-REACTIVE PROTEIN < 0.05 MG/DL (0.0-0.5)
[2021-01-28 08:52] LABS: TOTAL CELLS COUNTED 100
[2021-01-28 08:53] LABS: PLATELET ESTIMATE INCREASED
[2021-01-28 09:14] LABS: D-DIMER 0.47 MG/L FEU (0-0.50)
[2021-01-28 11:05] VITALS: BP 116/68
--- NOTE | 2021-01-28 11:44 | NUR ---
F/u 01/28: Pt PO improved now 75-100% avg carb controlled meals meeting needs. LBM 01/26. RD d/w RN regarding new DM this admit; still unsure if pt aware of DX as not aware on 01/24. RN unsure but reports will d/w MD. Pt Glu 80-120mg/dl on glycemic protocol and decadron per EMR. RN reports pt potential for discharge today; written Glu control ed w/ RD contact information mailed to pt home address in EMR in case discharged prior to made aware of DM. LBM 01/26. Will continue to monitor. Rec: 1. continue carb controlled diet; encourage PO 2. routine bowel care 3. scaled wt this admit; subsequent weekly wts 4. Verbal DM ed once pt made aware of new DM DX by MD prior to discharge; A1C 6.7% Addendum: 01/28/21 at [address] Amended: Links added.
--- NOTE | 2021-01-28 12:06 | NUR ---
O2 Sat at rest on room air:_86__% If below 89%: Recovery O2 Sat at rest on __3_LPM:__95_%:___% via___nasal cannula (mask/nasal cannula, etc..) No further documentation is necessary. If O2 Sat did not drop below 89% on room air,ambulate patient on room air. O2 Sat while ambulating on room air:___% Recovery O2 Sat while ambulating on ___LPM:___% No further documentation is necessary. If patient does not drop below 89% while ambulating, he/she does not qualify for home O2.
--- NOTE | 2021-01-28 12:08 | NUR ---
Placed page to case management for home oxygen.
[2021-01-28] MEDS: normal saline 1000ml 1,000 ML IV SCH (13:30)
--- NOTE | 2021-01-28 13:42 | NUR ---
PAGER ID: [phone] MESSAGE: [phone], discharge doesnt have any new medications. Are you still working on it? i finalized it thinking it was done without realizing there was no new medications. Barbara [phone]
[2021-01-28] MEDS ORDERED: METF-438 PO (13:46)
[2021-01-28] MEDS ORDERED: LISI-790 PO (13:46)
[2021-01-28] MEDS ORDERED: ATOR10TA PO (13:46)
[2021-01-28] MEDS ORDERED: DEXA4TAB73 PO (13:46)
[2021-01-28 14:51] VITALS: BP 109/61
--- NOTE | 2021-01-28 17:06 | NUR ---
Patient discharged to home via taxi, 20 gauge piv removed from left arm, cannula intact no complications. All instructions given to patient including follow up, s/s of worsening, when to call 911, medications and 02 management. Patient verbalized understanding of all instructions given. Sent home with 02 provided by [facility].
--- NOTE | 2021-01-29 11:02 | NUR ---
Called prescriptions in to [facility] in [facility]
== END 2021-01-28 17:00 | disposition home or self-care (01) | DRG 177 ==
LOC: ER 10:36 → ED HOLD 13:31 → ORTHO 4S 23:17
PROVIDERS: ADMIT Family Medicine; ATTEND Family Medicine
PROC: 5A0955A Assistance with Respiratory Ventilation, Greater than 96 Consecutive Hours, High Flow/Velocity Cannula (ICD-10-PCS; principal; 2021-01-20)
PROC: XW033E5 Introduction of Remdesivir Anti-infective into Peripheral Vein, Percutaneous Approach, New Technology Group 5 (ICD-10-PCS; 2021-01-20)
PROC: B32T1ZZ Computerized Tomography (CT Scan) of Left Pulmonary Artery using Low Osmolar Contrast (ICD-10-PCS; 2021-01-20)
PROC: B3201ZZ Computerized Tomography (CT Scan) of Thoracic Aorta using Low Osmolar Contrast (ICD-10-PCS; 2021-01-20)
PROC: B32S1ZZ Computerized Tomography (CT Scan) of Right Pulmonary Artery using Low Osmolar Contrast (ICD-10-PCS; 2021-01-20)
DX: U07.1 COVID-19 (principal); J96.00 Acute respiratory failure, unspecified whether with hypoxia or hypercapnia; J12.82 Pneumonia due to coronavirus disease 2019; E11.9 Type 2 diabetes mellitus without complications; J02.9 Acute pharyngitis, unspecified; I10 Essential (primary) hypertension; E66.9 Obesity, unspecified; Z68.35 Body mass index [BMI] 35.0-35.9, adult; Z88.0 Allergy status to penicillin
CPT/HCPCS: 36415; 71045; 71275; 80053; 80061; 82948; 83036; 83615; 83735; 83880; 84100; 84145; 85007; 85008; 85025; 85379; 86140; 87081; 87880; 93005; 94760; 96361; 96365; 96375; 97110; 97112; 97116; 97161; 97530; 99285; G0378; J0696; J1100; J1644; J1650; J1815; J1885; J7030; Q9967